=== PATIENT | male | born 1950 | race Caucasian/White ===

== ENCOUNTER 2016-06-29 07:59 | Emergency (ER) ==
[2016-06-29 08:35] LABS: MANUAL DIFF NEEDED? NO
[2016-06-29 08:57] LABS: AGAP 13; ALBUMIN 4.2 g/dL (3.5-5.0); ALKALINE PHOSPHATASE 47 U/L (32-122); BUN 11 mg/dL (8-22); CALCIUM 8.6 mg/dL (8.8-10.2); CHLORIDE 102 mmol/L (98-107); COSMO 283; GOT 19 U/L (10-34); GPT 17 U/L (10-44); SODIUM 139 mmol/L (136-145); TCO2 24 mmol/L (25-35); TOTAL BILIRUBIN 0.44 mg/dL (0.20-1.00)
[2016-06-29 08:58] LABS: URINE CULTURE NEEDED? NO; URINE MICRO REVIEW NEEDED? NO; URINE SOURCE CLEAN CATCH
[2016-06-29 09:01] LABS: BILIRUBIN URINE NEGATIVE (NEGATIVE); BLOOD URINE NEGATIVE (NEGATIVE); COLOR YELLOW; GLUCOSE URINE 1000 mg/dL (NEGATIVE); LEUKOCYTES URINE NEGATIVE (NEGATIVE); NITRITE URINE NEGATIVE (NEGATIVE); PH URINE 5.5; PROTEIN URINE NEGATIVE (NEGATIVE); SP GRAVITY URINE 1.017; TURBIDITY URINE CLEAR (CLEAR); UROBILINOGEN URINE NORMAL (NORMAL)
[2016-06-29 09:02] LABS: BASO% 0.3 % (0.0-0.8); EOS# 0.14 X1000 (0.0-0.7); EOS% 3.6 % (0.0-10.0); HEMATOCRIT 41.7 % (42.0-52.0); HEMOGLOBIN 14.2 g/dL (14.0-18.0); LYMPH# 1.23 X1000 (1.2-3.4); LYMPH% 31.6 % (20.5-51.1); MCH 30.7 PG (27-31); MCHC 34.1 g/dL (33-37); MCV 90.3 FL (81-99); MONO% 5.1 % (1.7-9.3); MPV 9.5 FL (7.4-10.4); NEUT% 59.4 % (42.2-75.2); PLT 159 X1000 (130-400); RBC 4.62 XMIL (4.7-6.1)
[2016-06-29 09:03] LABS: UR EPITHELIAL CELLS <10 /HPF (<10); URINE BACTERIA NEGATIVE /HPF; URINE RBC <10 /HPF (<10); URINE WBC <10 /HPF (<10)
--- NOTE | 2016-06-29 09:11 | Diag Imaging Result Document ---
PROCEDURE NAME: CHEST-2 VIEWS - 06/29/2016 CHEST, 2 VIEWS: COMPARISON: 10/14/2015. FINDINGS: Heart size is normal. There is a small granuloma from old granulomatous disease at the right upper lung which is stable. The lungs, otherwise, appear clear. There is no pleural effusion or pneumothorax identified. There is mild thoracic levoscoliosis noted. IMPRESSION: No evidence of acute disease.
[2016-06-29 09:12] LABS: UR AMPHETAMINES QUAL NONE DETECTED (NONE DETECT); UR BARBITUATES QUAL NONE DETECTED (NONE DETECT); UR BENZODIAZEPIN QUAL NONE DETECTED (NONE DETECT); UR CANNABINOIDS QUAL NONE DETECTED (NONE DETECT); UR COCAINE QUAL NONE DETECTED (NONE DETECT); UR METHADONE QUAL NONE DETECTED (NONE DETECT); UR OPIATES QUAL NONE DETECTED (NONE DETECT); UR OXYCODONE QUAL NONE DETECTED (NONE DETECT); UR PCP QUAL NONE DETECTED (NONE DETECT)
[2016-06-29 09:45] LABS: FREE T4 0.82 ng/dL (0.93-1.70)
[2016-06-29] MEDS ORDERED: ATIVAN IM ONE (10:51)
--- NOTE | 2016-06-29 10:52 | PROVIDER DOCUMENTATION ---
HPI-Psychological Disorder - General Chief Complaint: Psych Stated Complaint: SHAKING ALL OVER,COPD,CANT BREATHE Time Seen by Provider: 06/29/16 10:17 Source: patient Allergies/Adverse Reactions: Patient Allergies Allergy/AdvReac Type Severity Reaction Status Date / Time acetaminophen Allergy muscle Verified 10/14/15 13:44 [From Tylenol PM] spasms diphenhydramine HCl * Allergy muscle Verified 10/14/15 13:44 [From Tylenol PM] spasms Home Medications: Home Medication List Medication Instructions Recorded Confirmed Last Taken Type Doxazosin [Cardura] 4 mg PO HS 11/11/13 06/29/16 06/28/16 History Buspirone [Buspar] 10 mg PO TID #90 tablet 06/29/16 Unknown Rx - History of Present Illness-Psych Nature of Presenting Problem: Pt is a 66 y/o M c chief complaint of depression and suicidal thoughts. Pt states yesterday he was thinking of taking his sleeping pills in an attempt to end his life. Pt denies any h/o suicidal thoughts or depression. On arrival, pt is in minimal distress and denies HI/SI. Review of Systems - Adult - REVIEW OF SYSTEMS - ADULT Constitutional: reports: no symptoms reported. denies: chills, fatique Eyes: reports: no symptoms reported. denies: blurred vision, double vision Ears, Nose, Mouth & Throat: reports: no symptoms reported. denies: ear pain, nose pain Cardiovascular: reports: no symptoms reported. denies: chest pain, heart murmur Respiratory: reports: no symptoms reported. denies: cough, shortness of breath Gastrointestinal: reports: no symptoms reported. denies: abdominal pain, nausea Genitourinary: reports: no symptoms reported. denies: dysuria, hematuria Musculoskeletal: reports: no symptoms reported. denies: joint pain, joint swelling Integumentary: reports: no symptoms reported. denies: hives, itching Neurological: reports: no symptoms reported. denies: numbness, paresthesia Psychiatric: reports: no symptoms reported. denies: anxiety, emotional problems Endocrine: reports: no symptoms reported. denies: cold intolerance, heat intolerance Hematologic/Lymphatic: reports: no symptoms reported. denies: blood clots, low blood count Allergic/Immunologic: reports: no symptoms reported. denies: allergic reactions , food allergy All Other Systems: Reviewed and Negative Past History - Adult - PAST MEDICAL HISTORY-ADULT Review of Records: reports: Old Records Reviewed, Nursing Assessment Review, Medications Reviewed, Social history reviewed & non-contributory. Major Childhood Illnesses: reports: denies history Cardiovascular: reports: HTN Respiratory: reports: denies history Gastrointestinal: reports: denies history Obstetrical/Gynecological: reports: denies history Genitourinary: reports: denies history Musculoskeletal: reports: denies history Neurological: reports: denies history Endocrine/Immune: reports: denies history Other Conditions: reports: denies history - PRIOR SURGERIES/PROCEDURES Surgical/Procedure History: reports: orthopedic (extremity) - IMMUNIZATION STATUS Childhood Immunizations: See Nurse Assessment Flu Vaccine: See Nurse Assessment - FAMILY HISTORY Family History: reviewed, not pertinent - SOCIAL HISTORY Smoking: quit greater than 1 year, cigarettes, chew Provider spent 3-5 mins advising pt. on dangers of tobacco.: Discussed manners to quit use, and f/u contacts for add'l counseling. Substance Use: none/never Alcohol Use Frequency: never Living Situation: family Physical Exam-Psych Focus - Physical Exam-Psych Initial Vital Signs Reviewed: Yes Appearance: appropriate appearance, appropriate insight, neat, no apparent distress Neurological: alert, normal mood/affect, calm, oriented x 3, depressed affect Behavior/Eye Contact/Speech: cooperative, good eye contact, normal speech Thoughts/Hallucinations: normal thought pattern, no apparent hallucination, auditory hallucinations HENMT: normocephalic/atraumatic, moist mucous membranes, normal ENT inspection Neck: non-tender, full range of motion, supple Respiratory: chest non-tender, lungs clear, normal breath sounds Cardiovascular: normal peripheral pulses, regular rate, rhythm, no edema Abdominal Exam: normal bowel sounds, non tender, soft Lymphatic: no adenopathy Back Exam: normal inspection, no CVA tenderness, no vertebral tenderness Extremity: normal range of motion, non-tender, normal gait Integumentary: normal color, normal turgor, warm/dry Progress - PLAN OF CARE/RESULTS Progress/Plan/Lab Results: Orders Category Date Time Status CHEST-2 VIEWS [RAD] Stat Exams 06/29/16 08:23 Completed ALCOHOL BLOOD Stat Lab 06/29/16 08:24 Completed CBC WITH ELECTRONIC DIFF [HEME] Stat Lab 06/29/16 08:24 Completed COMPREHENSIVE METABOLIC PANEL [CHEM] Stat Lab 06/29/16 08:24 Completed FREE T4 Stat Lab 06/29/16 08:24 Completed TSH Stat Lab 06/29/16 08:24 Completed URINALYSIS W/POSS RFLX CULT [URINALYSIS] Stat Lab 06/29/16 08:50 Completed URINE DRUG SCREEN Stat Lab 06/29/16 08:50 Completed VITAMIN B12 Stat Lab 06/29/16 08:24 Completed Lorazepam [Ativan] Med 06/29/16 10:51 Discontinued 1 mg IM NOW ONE EKG [EKG] Stat Ther 06/29/16 08:23 Ordered Laboratory Tests 06/29/16 06/29/16 06/29/16 08:24 08:24 08:24 WBC 3.89 L RBC 4.62 L Hgb 14.2 Hct 41.7 L MCV 90.3 MCH 30.7 MCHC 34.1 RDW Std Deviation 13.1 Plt Count 159 MPV 9.5 Immature Gran % (Auto) 0.0 Neut % (Auto) 59.4 Lymph % (Auto) 31.6 [place] % (Auto) 5.1 Eos % (Auto) 3.6 Baso % (Auto) 0.3 Immature Gran # (Auto) 0.00 Neut # (Auto) 2.31 Lymph # (Auto) 1.23 [place] # (Auto) 0.20 Eos # (Auto) 0.14 Baso # (Auto) 0.01 Sodium 139 Potassium 4.0 Chloride 102 Carbon Dioxide 24 L Anion Gap 13 BUN 11 Creatinine 1.0 Estimated GFR/1.73 m2 > 60 BUN/Creatinine Ratio 11 Glucose 213 H Calculated Osmolality 283 Calcium 8.6 L Total Bilirubin 0.44 AST 19 ALT 17 Alkaline Phosphatase 47 Total Protein 7.0 Albumin 4.2 Globulin 2.8 Albumin/Globulin Ratio 1.5 Vitamin B12 TSH Free T4 Urine Source Urine Color Urine Turbidity Urine pH Ur Specific [place] Urine Protein Ur Glucose (Stick) Ur Ketones (Stick) Urine Blood Urine Nitrite Urine Bilirubin Urobilinogen Dipstick Urine Leukocytes Urine WBC (Auto) Urine RBC (Auto) U Epithel Cells (Auto) Urine Bacteria (Auto) Urine Opiates Screen Ur Oxycodone Screen Ur Methadone, Qual Ur Barbiturates Screen Ur Phencyclidine Scrn Ur Amphetamines Screen U Benzodiazepines Scrn Urine Cocaine Screen U Cannabinoids Screen Plasma/Serum Ethyl Alc 06/29/16 06/29/16 06/29/16 08:24 08:50 08:50 WBC RBC Hgb Hct MCV MCH MCHC RDW Std Deviation Plt Count MPV Immature Gran % (Auto) Neut % (Auto) Lymph % (Auto) [place] % (Auto) Eos % (Auto) Baso % (Auto) Immature Gran # (Auto) Neut # (Auto) Lymph # (Auto) [place] # (Auto) Eos # (Auto) Baso # (Auto) Sodium Potassium Chloride Carbon Dioxide Anion Gap BUN Creatinine Estimated GFR/1.73 m2 BUN/Creatinine Ratio Glucose Calculated Osmolality Calcium Total Bilirubin AST ALT Alkaline Phosphatase Total Protein Albumin Globulin Albumin/Globulin Ratio Vitamin B12 280 TSH 0.82 Free T4 0.82 L Urine Source CLEAN CATCH Urine Color YELLOW Urine Turbidity CLEAR Urine pH 5.5 Ur Specific [place] 1.017 Urine Protein NEGATIVE Ur Glucose (Stick) 1000 A Ur Ketones (Stick) NEGATIVE Urine Blood NEGATIVE Urine Nitrite NEGATIVE Urine Bilirubin NEGATIVE Urobilinogen Dipstick NORMAL Urine Leukocytes NEGATIVE Urine WBC (Auto) <10 Urine RBC (Auto) <10 U Epithel Cells (Auto) <10 Urine Bacteria (Auto) NEGATIVE Urine Opiates Screen NONE DETECTED Ur Oxycodone Screen NONE DETECTED Ur Methadone, Qual NONE DETECTED Ur Barbiturates Screen NONE DETECTED Ur Phencyclidine Scrn NONE DETECTED Ur Amphetamines Screen NONE DETECTED U Benzodiazepines Scrn NONE DETECTED Urine Cocaine Screen NONE DETECTED U Cannabinoids Screen NONE DETECTED Plasma/Serum Ethyl Alc Vital Signs - 24 hr 06/29/16 06/29/16 06/29/16 08:12 12:07 12:16 Temperature 98 F 98.1 F Pulse Rate 108 H 102 H 98 H Respiratory 20 22 18 Rate Blood Pressure 151/88 148/76 159/92 O2 Sat by Pulse 99 100 98 Oximetry - PSYCHIATRIC Medically clear for psych eval and/or transfer to [facility] Yes (Ernestina Ball paged at 10:52am) Departure - Departure Time of Disposition Order: 11:48 DIAGNOSIS: Suicidal thoughts Depression Qualifiers: Depression Type: unspecified Qualified Code(s): F32.9 - Major depressive disorder, single episode, unspecified Insomnia Qualifiers: Insomnia type: unspecified Qualified Code(s): G47.00 - Insomnia, unspecified Disposition: HOME 01 Certified Medical Emergency: Emergent Condition: Stable Additional Instructions: FOLLOW UP WITH OUT-PATIENT PSYCH YOU WERE INSTRUCTED BY ERNESTINA BALL. ED Follow Up Instructions: You have been treated by a care provider in the Emergency Department. These instructions are being provided to you so you can have an understanding of how to care for yourself upon discharge. Upon discharge from the Emergency Department, you are responsible for making arrangements for follow-up care by a physician of your choice. Take all prescribed medications as directed. Return to the Emergency Department immediately for any new or worsening symptoms. You may call the Physician Referral phone number at [phone] to obtain a list of Physicians who are taking new patients. Prescriptions: Buspirone [Buspar] 10 mg PO TID #90 tablet Referrals: Jose Abraham MD [Primary Care Provider] - Call for Appoint. 1-2days Instructions: Depression, Adult, Suicidal Feelings: How to Help Yourself, Helping Someone Who is Suicidal, Insomnia Attestation - Physician/ FREDA Attestation Patient care was provided by Advanced Practice Provider:: Yes Advanced Practice Provider:: Frederic Santiago Advanced Practice Provider documentation review:: The Mid-level provider documentation, treatment plan and medical decision making was reviewed by the physician who agrees with all treatment and medical decision making by the MLP.
[2016-06-29 12:17] VITALS: BP 159/92
--- NOTE | 2016-07-01 09:19 | EKG Report ---
Test Performed on : 06/29/2016 08:27:52 AM Test Reason : "shaking all over" Blood Pressure : / mmHG Vent. Rate : 088 BPM Atrial Rate : 088 BPM P-R Int : 114 ms QRS Dur : 106 ms QT Int : 364 ms P-R-T Axes : 032 -39 086 degrees QTc Int : 440 ms Normal sinus rhythm. Possible Left atrial enlargement Left axis deviation Abnormal ECG No previous ECGs available Unconfirmed Result
== END 2016-06-29 12:23 | disposition home or self-care (01) ==
LOC: ED 07:59
DX: F32.9 Major depressive disorder, single episode, unspecified (principal); R45.851 Suicidal ideations; G47.00 Insomnia, unspecified; I10 Essential (primary) hypertension; Z87.891 Personal history of nicotine dependence; Z79.899 Other long term (current) drug therapy
CPT/HCPCS: 71020; 80053; 81001; 82607; 84439; 84443; 85025; 93005; G0480; J2060; 80320; 80324; 80345; 80346; 80349; 80353; 80358; 80361; 80365; 83992